=== PATIENT | female | born 1955 ===

== ENCOUNTER 2018-06-29 19:29 | Emergency (ER) | payer MEDICAID, OTHER ==
[2018-06-29 19:29] VITALS: BMI 32.1
[2018-06-29 19:52] VITALS: BP 154/78; RESP 20; TEMP 97.8; O2SAT 97
--- NOTE | 2018-06-29 20:01 | C.PDOC ---
History Of Present Illness 63 year old female presents to the ED c/o pain to the left sided chest wall. Patient was seen by her PMD who prescribed her medications for shingles. Patient denies injury, fall, trauma, fever, chills, CP, SOB, weakness, numbness. Chief Complaint (Nursing): Back Pain History Per: Patient History/Exam Limitations: no limitations Onset/Duration Of Symptoms: Days Current Symptoms Are (Timing): Still Present Quality Of Discomfort: "Pain" Pain Scale Rating Of: 2 Previous Symptoms: Back Pain Recent travel outside of the [place]: No Additional History Per: Patient Past Medical History Reviewed: Historical Data, Nursing Documentation, Vital Signs Vital Signs: Last Vital Signs Temp 97.8 F 06/29/18 19:46 Pulse 77 06/29/18 19:46 Resp 20 06/29/18 19:46 BP 154/78 H 06/29/18 19:46 Pulse Ox 97 06/29/18 20:02 - Medical History PMH: No Chronic Diseases Denies: Kidney Stones, Chronic Kidney Disease Surgical History: No Surg Hx Family History: States: Unknown Family Hx - Social History Hx Alcohol Use: No Hx Substance Use: No - Immunization History Hx Tetanus Toxoid Vaccination: No Hx Influenza Vaccination: Yes Hx Pneumococcal Vaccination: No Review Of Systems Constitutional: Negative for: Fever, Chills Cardiovascular: Positive for: Chest Pain. Negative for: Palpitations Respiratory: Negative for: Cough, Shortness of Breath Gastrointestinal: Negative for: Nausea, Vomiting, Abdominal Pain Skin: Positive for: Rash Neurological: Negative for: Weakness, Numbness Physical Exam - Physical Exam Appears: Non-toxic, In Acute Distress (due to pain) Skin: Warm, Dry, Rash (formation on left side chest wall ) Head: Atraumatic, Normacephalic Eye(s): bilateral: Normal Inspection Oral Mucosa: Moist Neck: Normal ROM, Supple Chest: Symmetrical Cardiovascular: Rhythm Regular Respiratory: Normal Breath Sounds, No Rales, No Rhonchi, No Wheezing Gastrointestinal/Abdominal: Soft, No Tenderness, No Guarding, No Rebound Extremity: Normal ROM, No Tenderness, No Swelling Neurological/Psych: Oriented x3, Normal Speech Gait: Steady ED Course And Treatment O2 Sat by Pulse Oximetry: 97 (ON RA) Pulse Ox Interpretation: Normal Medical Decision Making Medical Decision Making: Plan: * Ultram 50mg PO Patient has shingles and was advised to continue with treatment Disposition Counseled Patient/Family Regarding: Diagnosis - Disposition Referrals: Boo Sutton MD [Staff Provider] - Disposition: HOME/ ROUTINE Disposition Time: 19:59 Condition: STABLE Prescriptions: traMADol/Acetaminophen [Ultracet 325 MG-37.5 MG] 1 tab PO Q6 #20 tab Instructions: Shingles (DC) Forms: [facility] (Moldovan) - POA Present On Arrival: None - Clinical Impression Clinical Impression: Shingles, Left-sided chest wall pain - Scribe Statement The provider has reviewed the documentation as recorded by the Scribe Jonathan Guerin All medical record entries made by the Scribe were at my direction and personally dictated by me. I have reviewed the chart and agree that the record accurately reflects my personal performance of the history, physical exam, medical decision making, and the department course for this patient. I have also personally directed, reviewed, and agree with the discharge instructions and disposition.
[2018-06-29 20:09] VITALS: PULSE 80
== END 2018-06-29 20:07 | disposition home or self-care (01) ==
LOC: C.ER 19:29
DX: B02.9 Zoster without complications (principal); R07.89 Other chest pain

== ENCOUNTER 2019-01-06 07:17 | Emergency (ER) | payer MEDICAID ==
[2019-01-06 07:17] VITALS: BMI 28.3
[2019-01-06 07:28] VITALS: BP 124/78; PULSE 66; RESP 18; TEMP 97.7; O2SAT 98
--- NOTE | 2019-01-06 08:08 | C.PDOC ---
History Of Present Illness 63 year old female presents to the emergency department with complaints of right earache since 1AM last night. Patient states that she put eardrops in her ear, after which the pain got worse. She states that she started bleeding from the right ear, after which the pain improved. Patient denies fever. Time Seen by Provider: 01/06/19 07:31 Chief Complaint (Nursing): ENT Problem History Per: Patient History/Exam Limitations: None Onset/Duration Of Symptoms: Days (1) Current Symptoms Are (Timing): Still Present Quality (Ear): Discharge (blood), Other (earache) Past Medical History Reviewed: Historical Data, Nursing Documentation, Vital Signs Vital Signs: Last Vital Signs Temp 97.7 F 01/06/19 07:25 Pulse 66 01/06/19 07:25 Resp 18 01/06/19 07:25 BP 124/78 01/06/19 07:25 Pulse Ox 98 01/06/19 07:25 - Medical History PMH: No Chronic Diseases Denies: Kidney Stones, Chronic Kidney Disease Surgical History: No Surg Hx Family History: States: Unknown Family Hx - Social History Hx Alcohol Use: No Hx Substance Use: No - Immunization History Hx Tetanus Toxoid Vaccination: No Hx Influenza Vaccination: Yes Hx Pneumococcal Vaccination: No Review Of Systems Except As Marked, All Systems Reviewed And Found Negative. Constitutional: Negative for: Fever, Chills ENT: Positive for: Ear Pain, Ear Discharge (blood) Gastrointestinal: Negative for: Nausea, Vomiting Physical Exam - Physical Exam Appears: Non-toxic, No Acute Distress Skin: Normal Color, Warm, Dry Head: Atraumatic, Normacephalic Eye(s): bilateral: Normal Inspection, PERRL, EOMI Ear(s): Left: Normal, Right: Other (Perforated TM, no active bleeding, dry blood in ear.) Nose: Normal Oral Mucosa: Moist Throat: Normal, No Erythema Neck: Normal, Supple Chest: Symmetrical, No Tenderness Neurological/Psych: Oriented x3, Normal Speech, Normal Cognition ED Course And Treatment O2 Sat by Pulse Oximetry: 98 (RA) Pulse Ox Interpretation: Normal Medical Decision Making Medical Decision Making: Plan: Amoxil 500mg PO Zofran 4mg PO Disposition - Disposition Referrals: Bubba Smith MD [Staff Provider] - Disposition: HOME/ ROUTINE Disposition Time: 08:05 Condition: STABLE Additional Instructions: Follow up with ENT specialist within 1-2d ays. Return to ED if feel worse. Prescriptions: Amoxicillin 500 mg PO Q8 #30 tab traMADol [Ultram] 50 mg PO Q6 #20 tab Ondansetron ODT [Zofran ODT] 4 mg PO .Q4-6H PRN #20 odt PRN Reason: Nausea/Vomiting Instructions: Ruptured Eardrum Forms: [employer] (Kyrgyz) - Clinical Impression Clinical Impression: Ruptured tympanic membrane - PA / OTR [employer] / Resident Statement MD/DO has reviewed & agrees with the documentation as recorded. - Scribe Statement The provider has reviewed the documentation as recorded by the Scribe All medical record entries made by the Scribe were at my direction and personally dictated by me. I have reviewed the chart and agree that the record accurately reflects my personal performance of the history, physical exam, medical decision making, and the department course for this patient. I have also personally directed, reviewed, and agree with the discharge instructions and disposition.
== END 2019-01-06 08:14 | disposition home or self-care (01) ==
LOC: C.ER 07:17
DX: H72.91 Unspecified perforation of tympanic membrane, right ear (principal)